=== PATIENT | male | born 1945 | race Asian ===

== ENCOUNTER 2017-07-28 09:45 | Emergency (ER) | payer OTHER ==
[~2017-07-28] VITALS: Ht 170.2 cm; Wt 77.1 kg
[2017-07-28 10:17] VITALS: BP 143/80
--- NOTE | 2017-07-28 10:31 | ED UPPER/LOWER EXTREMITY COMPL ---
History of Present Illness General Chief Complaint: Upper Extremity Problem Stated Complaint: RT ARM HEMATOMA FROM BLD DRAW YESTERDAY Source: patient Exam Limitations: no limitations Vital Signs & Intake/Output Vital Signs & Intake/Output Vital Signs Date Time Temp Pulse Resp B/P B/P Pulse O2 O2 Flow FiO2 Mean Ox Delivery Rate 07/28 1039 98 07/28 1017 98.1 60 20 143/80 97 Room Air Allergies Coded Allergies: No Known Allergies (07/28/17) Triage Note: PT SENT IN BY LAB AT [place] FOR HEMATOMA AFTER BLOOD DRAW YESTERDAY. [facility] Triage Nurses Notes Reviewed? yes Onset: Abrupt Duration: constant Severity: mild Severity Numbers: 3 HPI: Patient is a 71-year-old male with a past medical history of hypothyroidism diabetes hypertension and hyperlipidemia [facility] in which he was receiving routine blood work yesterday TO THE right antecubital fossa OF HIS ELBOW where he states that it was "a new person drawing his blood" where he states that since the blood draw he had acute onset of persistent swelling and bruising to the region. Patient denies any pain denies any fever chills denies any extremity swelling or paresthesia or erythema. Patient is on a baby aspirin regimen Past History Travel History Traveled to [place] past 21 day No Medical History Any Pertinent Medical History? see below for history Cardiovascular: hypertension Endocrine: diabetes Surgical History Surgical History: non-contributory Psychosocial History What is your primary language [place] Tobacco Use: Never used ETOH Use: occasional use Illicit Drug Use: denies illicit drug use Family History Hx Contributory? No Review of Systems Review of Systems Constitutional: Reports: no symptoms. EENTM: Reports: no symptoms. Respiratory: Reports: no symptoms. Cardiovascular: Reports: no symptoms. Gastrointestinal/Abdominal: Reports: no symptoms. Genitourinary: Reports: no symptoms. Musculoskeletal: Reports: see HPI. Skin: Reports: see HPI. Neurological/Psychological: Reports: no symptoms. Hematologic/Endocrine: Reports: no symptoms. Immunological: Reports: no symptoms. All Other Systems: Reviewed and Negative Physical Exam Physical Exam General Appearance: no apparent distress, alert, awake, comfortable Head: atraumatic Eyes: Bilateral: normal appearance. Ears, Nose, Throat: hearing grossly normal Neck: normal inspection Peripheral Pulses: 2+ radial (R) Neurologic/Tendon: normal sensation, normal motor functions, normal tendon functions, responds to pain, no evidence tendon injury, no pulse deficit Skin: intact Diagram Right Arm Front 1) Noted 1.5 cm ecchymosis and mild swelling nontender no erythema full active range of motion no fluctuance no induration Progress Differential Diagnosis: arterial insufficiency, cellulitis, CHF, compartment syndrome, contusion, dislocation, DVT, septic arthritis, sprain, tendon injury, FB RETENTION, Plan of Care: Differential diagnosis includes pseudoaneurysm phlebitis On examination due to history present illness and exam pending patient has suspicion of localized right antecubital fossa hematoma from the blood draw yesterday. Patient was neurovascularly intact no signs of infection at this time Departure Departure Disposition: HOME OR SELF CARE Condition: Stable Clinical Impression Primary Impression: Hematoma Referrals: Cale Camara MD (PCP/Family) Additional Instructions: As discussed apply warm compresses to the region If you note signs of infection redness, pain, swelling, discharge return to emergency room. Follow-up with your primary care doctor on Thursday if no better. If symptoms worsen or if YOU develop any new concerning symptoms return to emergency room Departure Forms: Customer Survey General Discharge Information
== END 2017-07-28 11:17 ==
LOC: ERH 09:45
DX: S50.01XA Contusion of right elbow, initial encounter (principal); X58.XXXA Exposure to other specified factors, initial encounter; Y92.9 Unspecified place or not applicable; Y93.9 Activity, unspecified